=== PATIENT | female | born 1960 | race Caucasian/White ===

== ENCOUNTER 2016-12-04 15:13 | Emergency (ER) | payer OTHER ==
[~2016-12-04] VITALS: Ht 170.2 cm; Wt 56.0 kg
[~2016-12-04 15:13] MED LIST: BACT800T5 PO; FISH1000 PO; GABA600T PO; MEVA40TA PO; PROZ20CA11 PO; ULTR50TA PO
[2016-12-04 15:20] VITALS: BP 154/104; PULSE 101; RESP 18; TEMP 98.1; O2SAT 95
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
[2016-12-04] MEDS ORDERED: TETANUS/DIPHTHERIA TOXOID ADULT 0.5 ML VIAL IM ONE (16:30)
[2016-12-04] MEDS ORDERED: GABA600T PO (16:34)
[2016-12-04] MEDS ORDERED: ATOR10TA15 PO (16:34)
[2016-12-04] MEDS ORDERED: CYCL5TAB PO (16:34)
[2016-12-04] MEDS ORDERED: SYMB80AE INH (16:34)
[2016-12-04] MEDS ORDERED: LOVA10TA PO (16:34)
[2016-12-04] MEDS ORDERED: TRAM50TA PO (16:34)
[2016-12-04] MEDS ORDERED: LIDOCAINE HCL 1% 50 ML VIAL INFIL ONE (17:00)
== END 2016-12-04 17:25 | disposition home or self-care (01) ==
LOC: PHEFT 15:13
DX: S01.01XA Laceration without foreign body of scalp, initial encounter (principal); F43.10 Post-traumatic stress disorder, unspecified; E78.00 Pure hypercholesterolemia, unspecified; F17.210 Nicotine dependence, cigarettes, uncomplicated; W22.8XXA Striking against or struck by other objects, initial encounter; Y93.E9 Activity, other interior property and clothing maintenance; Y92.9 Unspecified place or not applicable
CPT/HCPCS: 12001